=== PATIENT | male | born 1945 | race Caucasian/White ===

== ENCOUNTER 2021-01-07 11:31 | Inpatient (IN) | payer MEDICARE ==
[~2021-01-07] VITALS: Ht 185.4 cm; Wt 108.0 kg
[2021-01-07 12:35] LABS: BASOPHIL 0.2 % (0-2); EOSINOPHIL 0 % (0-7); HCT 43.7 % (42.0-52.0); HGB 13.9 g/dl (13.2-18.0); LYMPHOCYTE 10.5 % (15-48); MCH 26.3 pg (25.0-31.0); MCHC 31.8 g/dL (32.0-36.0); MCV 82.8 fL (78.0-100.0); MONOCYTE 5.2 % (0-12); NEUTROPHIL 83.7 % (41-80); NRBC 0; PLT 151 K/uL (150-400); RBC 5.28 M/uL (4.70-6.00); WBC 4.8 K/uL (4.0-10.5)
[2021-01-07 12:52] LABS: ALBUMIN 2.6 g/dL (3.4-5.0); BILIRUBIN - TOTAL 0.4 mg/dL (0.2-1.0); BUN/CREAT RATIO (CALC) 13.7 RATIO; CREATININE 1.75 mg/dL (0.67-1.17); GLOBULIN (CALCULATION) 3.6 g/dL; TOTAL PROTEIN 6.2 g/dL (6.4-8.2)
[2021-01-07 12:59] LABS: POTASSIUM 2.4 mmol/L (3.5-5.1)
[2021-01-07] MEDS ORDERED: FLOMAX0.4 MG PO (17:05)
[2021-01-07] MEDS ORDERED: ALLOPURINOL100 MG PO (17:05)
[2021-01-07] MEDS ORDERED: ASPIRIN EC81 MG PO (17:06)
[2021-01-07] MEDS ORDERED: DIAZEPAM 5MG TAB5 MG PO (17:06)
[2021-01-07] MEDS ORDERED: ZYRTEC10 M3 PO ×2 (17:07→17:08)
[2021-01-07] MEDS ORDERED: CENTRUM SILVER1 EAC1 PO (17:09)
[2021-01-07] MEDS ORDERED: ZETIA10 MG PO (17:09)
[2021-01-07] MEDS ORDERED: PLAVIX75 MG PO (17:10)
[2021-01-07] MEDS ORDERED: COREG 6.25MG6.25 MG PO (17:11)
[2021-01-07] MEDS ORDERED: NORVASC5 MG PO (17:12)
[2021-01-07] MEDS ORDERED: COREG 3.125M3.125 MG PO (17:12)
[2021-01-07] MEDS ORDERED: NEXIUM40 MG PO (17:13)
[2021-01-07] MEDS ORDERED: NITRO-BID60 GM PO (17:15)
[2021-01-08 03:11] LABS: BASOPHIL 0 % (0-2); EOSINOPHIL 0 % (0-7); HCT 40.1 % (42.0-52.0); HGB 12.8 g/dl (13.2-18.0); LYMPHOCYTE 12.7 % (15-48); MCH 26.2 pg (25.0-31.0); MCHC 31.9 g/dL (32.0-36.0); MONOCYTE 5.4 % (0-12); MPV 11.1 fL (6.0-9.5); NEUTROPHIL 81.3 % (41-80); NRBC 0; PLT 125 K/uL (150-400); RBC 4.89 M/uL (4.70-6.00); RDW 16.8 % (11.5-14.0); WBC 3.2 K/uL (4.0-10.5)
[2021-01-08 03:42] LABS: ALBUMIN 2.3 g/dL (3.4-5.0); BILIRUBIN - TOTAL 0.3 mg/dL (0.2-1.0); BUN/CREAT RATIO (CALC) 12.2 RATIO; C-REACTIVE PROTEIN 14.8 mg/dL (<=0.90); CREATININE 1.81 mg/dL (0.67-1.17); GLOBULIN (CALCULATION) 3.3 g/dL; POTASSIUM 2.6 mmol/L (3.5-5.1); TOTAL PROTEIN 5.6 g/dL (6.4-8.2)
[2021-01-09 05:12] LABS: BASOPHIL 0.4 % (0-2); HCT 39.2 % (42.0-52.0); HGB 12.5 g/dl (13.2-18.0); LYMPHOCYTE 20.8 % (15-48); MCH 26.2 pg (25.0-31.0); MCHC 31.9 g/dL (32.0-36.0); MONOCYTE 5.4 % (0-12); MPV 10.1 fL (6.0-9.5); PLT 123 K/uL (150-400); RBC 4.78 M/uL (4.70-6.00); RDW 16.6 % (11.5-14.0)
[2021-01-09 06:02] LABS: BILIRUBIN - TOTAL 0.2 mg/dL (0.2-1.0); BUN/CREAT RATIO (CALC) 14.9 RATIO; C-REACTIVE PROTEIN 13.4 mg/dL (<=0.90); CREATININE 1.61 mg/dL (0.67-1.17); GLOBULIN (CALCULATION) 3.8 g/dL; MAGNESIUM 1.8 mg/dL (1.8-2.4); POTASSIUM 3.2 mmol/L (3.5-5.1); TOTAL PROTEIN 5.8 g/dL (6.4-8.2)
[2021-01-10 07:17] LABS: HCT 38.3 % (42.0-52.0); HGB 12.2 g/dl (13.2-18.0); LYMPHOCYTE 11.3 % (15-48); MCH 26.4 pg (25.0-31.0); MCHC 31.9 g/dL (32.0-36.0); MCV 82.9 fL (78.0-100.0); MONOCYTE 3.3 % (0-12); MPV 11.2 fL (6.0-9.5); NEUTROPHIL 84.9 % (41-80); PLT 146 K/uL (150-400); RBC 4.62 M/uL (4.70-6.00); RDW 16.9 % (11.5-14.0); WBC 2.12 K/uL (4.0-10.5)
[2021-01-10 07:58] LABS: ALBUMIN 2.1 g/dL (3.4-5.0); BILIRUBIN - TOTAL 0.3 mg/dL (0.2-1.0); BUN/CREAT RATIO (CALC) 15.9 RATIO; C-REACTIVE PROTEIN 7.6 mg/dL (<=0.90); CREATININE 1.64 mg/dL (0.67-1.17); POTASSIUM 3.9 mmol/L (3.5-5.1); TOTAL PROTEIN 6.1 g/dL (6.4-8.2)
[2021-01-11 06:04] LABS: BASOPHIL 0 % (0-2); EOSINOPHIL 0 % (0-7); HCT 38.7 % (42.0-52.0); HGB 12.2 g/dl (13.2-18.0); LYMPHOCYTE 7.1 % (15-48); MCH 26.2 pg (25.0-31.0); MCHC 31.5 g/dL (32.0-36.0); MPV 11.4 fL (6.0-9.5); NEUTROPHIL 87.6 % (41-80); NRBC 0; PLT 148 K/uL (150-400); RBC 4.66 M/uL (4.70-6.00); RDW 17.2 % (11.5-14.0); WBC 3.8 K/uL (4.0-10.5)
[2021-01-11 06:55] LABS: ALBUMIN 2.1 g/dL (3.4-5.0); BILIRUBIN - TOTAL 0.3 mg/dL (0.2-1.0); BUN/CREAT RATIO (CALC) 20.3 RATIO; C-REACTIVE PROTEIN 3.6 mg/dL (<=0.90); CREATININE 1.53 mg/dL (0.67-1.17); GLOBULIN (CALCULATION) 3.8 g/dL; TOTAL PROTEIN 5.9 g/dL (6.4-8.2)
[2021-01-12 05:49] LABS: BASOPHIL 0 % (0-2); EOSINOPHIL 0 % (0-7); HCT 38.3 % (42.0-52.0); LYMPHOCYTE 4.3 % (15-48); MCHC 31.3 g/dL (32.0-36.0); MCV 82.9 fL (78.0-100.0); MONOCYTE 3.6 % (0-12); MPV 11.5 fL (6.0-9.5); NEUTROPHIL 91.5 % (41-80); NRBC 0; PLT 155 K/uL (150-400); RBC 4.62 M/uL (4.70-6.00); RDW 17.2 % (11.5-14.0); WBC 5.3 K/uL (4.0-10.5)
[2021-01-12 06:01] LABS: BUN/CREAT RATIO (CALC) 22.2 RATIO; CREATININE 1.58 mg/dL (0.67-1.17); MAGNESIUM 1.6 mg/dL (1.8-2.4); POTASSIUM 3.8 mmol/L (3.5-5.1)
[2021-01-13 07:27] LABS: BUN/CREAT RATIO (CALC) 23.4 RATIO; CREATININE 1.75 mg/dL (0.67-1.17); MAGNESIUM 1.8 mg/dL (1.8-2.4); POTASSIUM 3.7 mmol/L (3.5-5.1)
[2021-01-14 06:59] LABS: BASOPHIL 0.1 % (0-2); EOSINOPHIL 0 % (0-7); HCT 42.6 % (42.0-52.0); HGB 13.3 g/dl (13.2-18.0); LYMPHOCYTE 2.3 % (15-48); MCH 25.8 pg (25.0-31.0); MCHC 31.2 g/dL (32.0-36.0); MCV 82.6 fL (78.0-100.0); MONOCYTE 2.6 % (0-12); MPV 11.4 fL (6.0-9.5); NRBC 0; PLT 188 K/uL (150-400); RBC 5.16 M/uL (4.70-6.00); RDW 16.9 % (11.5-14.0)
[2021-01-14 07:43] LABS: BUN/CREAT RATIO (CALC) 26.6 RATIO; CREATININE 1.69 mg/dL (0.67-1.17); MAGNESIUM 1.9 mg/dL (1.8-2.4); PHOSPHORUS 4.4 mg/dL (2.6-4.7); POTASSIUM 4.1 mmol/L (3.5-5.1)
--- NOTE | 2021-01-15 11:55 | NUR ---
IV 22 G IN [facility] REMOVED AND REPLACED WITH 22 G IN [place]
[2021-01-16 03:45] LABS: BASOPHIL 0 % (0-2); EOSINOPHIL 0 % (0-7); HCT 41.7 % (42.0-52.0); HGB 13.1 g/dl (13.2-18.0); LYMPHOCYTE 1.7 % (15-48); MCH 25.9 pg (25.0-31.0); MCHC 31.4 g/dL (32.0-36.0); MCV 82.6 fL (78.0-100.0); MONOCYTE 3.6 % (0-12); MPV 10.9 fL (6.0-9.5); NRBC 0; PLT 197 K/uL (150-400); RBC 5.05 M/uL (4.70-6.00); RDW 17.1 % (11.5-14.0); WBC 7.5 K/uL (4.0-10.5)
[2021-01-16 03:56] LABS: NEUTROPHIL 93.8 % (41-80)
[2021-01-16 04:12] LABS: BUN/CREAT RATIO (CALC) 30.1 RATIO; CREATININE 1.53 mg/dL (0.67-1.17); POTASSIUM 3.9 mmol/L (3.5-5.1)
[2021-01-17 06:56] LABS: BASOPHIL 0.2 % (0-2); EOSINOPHIL 0 % (0-7); HCT 41.4 % (42.0-52.0); HGB 12.9 g/dl (13.2-18.0); LYMPHOCYTE 1.1 % (15-48); MCHC 31.2 g/dL (32.0-36.0); MCV 83.3 fL (78.0-100.0); MONOCYTE 3.3 % (0-12); MPV 11.5 fL (6.0-9.5); NRBC 0; PLT 212 K/uL (150-400); RBC 4.97 M/uL (4.70-6.00); RDW 17.2 % (11.5-14.0); WBC 6.2 K/uL (4.0-10.5)
[2021-01-17 06:59] LABS: NEUTROPHIL 94.6 % (41-80)
[2021-01-17 07:20] LABS: BUN/CREAT RATIO (CALC) 29.6 RATIO; CREATININE 1.79 mg/dL (0.67-1.17); POTASSIUM 4.1 mmol/L (3.5-5.1)
[2021-01-17] MEDS ORDERED: ASMANEX220 MC1 INH ×2 (13:07→13:21)
[2021-01-17] MEDS ORDERED: DEXAMETHASONE 2M2 MG PO (13:07)
[2021-01-17] MEDS ORDERED: COREG 6.25MG6.25 MG PO (13:07)
[2021-01-17] MEDS ORDERED: PROVENTIL HFA6.7 GM INH (13:07)
--- NOTE | 2021-01-17 14:42 | NUR ---
01/17/21 A referral was made to [facility] for 02 with oximizer. [facility] are on diversion. [facility] accepted patient.
== END 2021-01-17 14:00 | disposition home health service (06) | DRG 871 ==
LOC: FER 11:31 → FMS 14:58 → FICU 01-13 09:41 → FTCU 01-13 17:32
PROVIDERS: Internal Medicine; ADMIT Internal Medicine
PROC: XW033E5 Introduction of Remdesivir Anti-infective into Peripheral Vein, Percutaneous Approach, New Technology Group 5 (ICD-10-PCS; principal; 2021-01-07)
PROC: XW0DXM6 Introduction of Baricitinib into Mouth and Pharynx, External Approach, New Technology Group 6 (ICD-10-PCS; 2021-01-08)
PROC: 8E0ZXY6 Isolation (ICD-10-PCS; 2021-01-13)
DX: A41.89 Other specified sepsis (principal); U07.1 COVID-19; J96.01 Acute respiratory failure with hypoxia; N17.9 Acute kidney failure, unspecified; I48.92 Unspecified atrial flutter; I47.2 Ventricular tachycardia; N18.30 Chronic kidney disease, stage 3 unspecified; I12.9 Hypertensive chronic kidney disease with stage 1 through stage 4 chronic kidney disease, or unspecified chronic kidney disease; I25.10 Atherosclerotic heart disease of native coronary artery without angina pectoris; M10.9 Gout, unspecified; E78.5 Hyperlipidemia, unspecified; N40.0 Benign prostatic hyperplasia without lower urinary tract symptoms; K21.9 Gastro-esophageal reflux disease without esophagitis; Z90.49 Acquired absence of other specified parts of digestive tract; Z98.890 Other specified postprocedural states; Z90.89 Acquired absence of other organs; Z95.5 Presence of coronary angioplasty implant and graft; Z79.82 Long term (current) use of aspirin; Z79.02 Long term (current) use of antithrombotics/antiplatelets; Z79.899 Other long term (current) drug therapy; Z88.2 Allergy status to sulfonamides; Z87.891 Personal history of nicotine dependence; I25.2 Old myocardial infarction
CPT/HCPCS: 36415; 36600; 71045; 80048; 80053; 82306; 82553; 82728; 82803; 83735; 84100; 84145; 84484; 85025; 85379; 86140; 93005; 94010; 94640; 94667; 94668; 94760; 94762; C9399; J1650; J3475; J3480; J7030; J7050; J8540; U0002